=== PATIENT | female | born 1980 | race African-American/Black ===

== ENCOUNTER 2018-06-21 06:52 | Day surgery (SDC) | payer OTHER ==
[2018-06-20 07:58] VITALS: BMI 36.6
[2018-06-21] MEDS ORDERED: fentaNYL CITRATE 250 MCG/5 ML VIAL ONE (07:22)
[2018-06-21] MEDS ORDERED: PROPOFOL 20 ML ONE ×2 (07:22→07:23)
[2018-06-21] MEDS ORDERED: SUCCINYLCHOLINE CHLORIDE 200 MG/10 ML VIAL ONE (07:23)
[2018-06-21] MEDS ORDERED: ROCURONIUM BROMIDE 50 MG/5 ML VIAL ONE ×2 (07:23→09:02)
[2018-06-21] MEDS ORDERED: MIDAZOLAM HCL 2 MG/2 ML SINGLE DOSE VIAL ONE (07:23)
[2018-06-21] MEDS ORDERED: COCAINE HCL 4% TOPICAL SOLUTION 4 ML BOTTLE TP ONE ×2 (07:29→08:20)
[2018-06-21] MEDS ORDERED: BACITRACIN 15 GM TUBE TOPICAL OINTMENT ONE (07:34)
[2018-06-21] MEDS ORDERED: LIDOCAINE 1%/EPI 1:100000 (20 ML MULTI DOSE VIAL) ONE (07:34)
--- NOTE | 2018-06-21 08:00 | HP ---
Admitting History and Physical - Admission Chief Complaint: Nasal congestion and sinus pressure History of Present Illness: Chronic sx, refractory to medication, and allergy rx. History Source: Patient, Medical Record Limitations to Obtaining History: No Limitations - Past Medical History Pulmonary: Yes: Asthma ...LMP: 06/07/18 Musculoskeletal: Yes: Other (carpal tunnel) - Smoking History Smoking history: Never smoked - Alcohol/Substance Use Hx Alcohol Use: No Home Medications - Allergies Allergies/Adverse Reactions: Allergies Allergy/AdvReac Type Severity Reaction Status Date / Time No Known Allergies Allergy Verified 06/21/18 07:30 - Home Medications Home Medications: Ambulatory Orders NK [No Known Home Medication] 06/20/18 Physical Examination Vital Signs: Vital Signs Temperature 98.1 F 06/21/18 07:29 Pulse Rate 60 06/21/18 07:29 Respiratory Rate 20 06/21/18 07:29 Blood Pressure 129/73 06/21/18 07:29 O2 Sat by Pulse Oximetry (%) 98 06/21/18 07:26 Constitutional: Yes: Well Nourished, No Distress Eyes: Yes: WNL, Conjunctiva Clear, EOM Intact HENT: Yes: Other (turbinate hypertrophy) Cardiovascular: Yes: WNL Respiratory: Yes: WNL Gastrointestinal: Yes: WNL Musculoskeletal: Yes: WNL Extremities: Yes: WNL Problem List - Problems (1) Sinusitis chronic, ethmoidal Assessment/Plan: For surgery of sinuses. Risks and benefits dicussed, all questions answered. Code(s): J32.2 - CHRONIC ETHMOIDAL SINUSITIS Assessment/Plan For sinus surgery
[2018-06-21] MEDS ORDERED: ceFAZolin SODIUM 1 GM VIAL IVPB ONE (08:18)
[2018-06-21] MEDS ORDERED: LIDOCAINE 1%/EPI 1:100000 (50 ML MULTI DOSE VIAL) NR ONE (08:20)
[2018-06-21] MEDS ORDERED: NEOSTIGMINE METHYLSULFATE 0.5 MG/ML - 10 ML MDV ONE (08:32)
[2018-06-21] MEDS ORDERED: DEXAMETHASONE SOD PHOSPHATE 4 MG/1 ML VIAL ONE (08:32)
[2018-06-21] MEDS ORDERED: DEXMEDETOMIDINE HCL 200 MCG/2 ML IVPB ONE (08:44)
[2018-06-21] MEDS ORDERED: BACITRACIN 15 GM TUBE TOPICAL OINTMENT TP ONE (09:04)
[2018-06-21] MEDS ORDERED: TRIAMCINOLONE ACET 40MG/1ML VIAL ONE (09:05)
[2018-06-21] MEDS ORDERED: TRIAMCINOLONE ACET 40MG/1ML VIAL IJ ONE (09:06)
[2018-06-21] MEDS ORDERED: oxyCODONE HCL 5 MG TABLET PO PRN (09:33)
[2018-06-21] MEDS ORDERED: ONDANSETRON 4 MG/2 ML VIAL IVPUSH PRN (09:33)
[2018-06-21] MEDS ORDERED: ACETAMINOPHEN 1000 MG/100 ML VIAL (NON FORMULARY) IVPB ONE (09:35)
[2018-06-21] MEDS ORDERED: LACTATED RINGERS SOLUTION 1,000 ML IV SCH (09:45)
[2018-06-21] MEDS ORDERED: ONDANSETRON 4 MG/2 ML VIAL ONE (10:01)
[2018-06-21] MEDS ORDERED: oxyCODONE HCL 5 MG TABLET PO ONE (10:55)
[2018-06-21] MEDS ORDERED: oxyCODONE HCL 5 MG TABLET ONE (10:56)
[2018-06-21 13:38] VITALS: BP 126/70; PULSE 62; TEMP 98
--- NOTE | 2018-06-22 15:56 | PATH ---
Surgical Pathology Report Patient Name: [facility]. Rec. #: [id number] /Age/Gender: 1980 (Age: 38) / F Account: [id number] Location: [facility] [place] SURGICAL Taken: 06/21/2018 Received: 06/21/2018 Reported: 06/22/2018 Physicians: Ashutosh Gardner M.D. Specimen(s) Received ETHMOID SINUS TISSUES Clinical History Chronic sinusitis, turbinate hypertrophy Final Diagnosis ETHMOID SINUS TISSUES, TOTAL ETHMOIDECTOMY: FRAGMENTS OF RESPIRATORY EPITHELIUM, SCANT RESPIRATORY MUCOSA WITH MILD CHRONIC SINUSITIS, AND RARE BONE. Electronically Signed Ansley Vazquez M.D. Gross Description Received in formalin labeled "ethmoid sinus tissues" are multiple fragments of pink-dickson mucoid tissue measuring 3 x 2 x 0.7 cm in aggregate. Alternative Medicine Practitioner sections are submitted in one cassette. MLSZ/06/21/2018 sansandra/06/21/2018
--- NOTE | 2018-06-30 21:32 | OP ---
DATE OF OPERATION: 06/21/2018 PREOPERATIVE DIAGNOSES: Chronic sinusitis, turbinate hypertrophy, nasal obstruction. POSTOPERATIVE DIAGNOSES: Chronic sinusitis, turbinate hypertrophy, nasal obstruction. PROCEDURE: Bilateral anterior ethmoidectomy, bilateral maxillary antrostomy with balloon, bilateral turbinate outfracture and cautery, and sinus navigation instrument. Preoperatively, the risks and benefits were discussed with her and all questions were answered. The procedure went as follows: The patient was brought to the operating room, placed under anesthesia, and then her nose was decongested with 1% lidocaine with 1:100,000 epinephrine injected into the inferior turbinates, lateral nasal wall, and middle turbinates. Cocaine 4% pledgets were placed in both nostrils. She was prepped and draped and then a Leikrtronic Sinus Navigation was placed on and calibrated. After decongesting her nose, endoscopic examination revealed very large inferior turbinates, minimally decongested by topical and injected decongestants, very narrow middle meatus. The surgery was initially performed by medializing the right middle turbinate. She has very hard, bony middle turbinates. The uncinate was peeled forward with a maxillary seeker and the Medtronic Balloon Navigation device was placed into the maxillary sinus and 2 separate insufflations of 5 seconds apiece were performed on the right maxillary ostia. The space between the lateral wall and the middle turbinate was fairly narrow and the middle turbinate was very firm and did not medialize very much. The Medtronic-guided 4-mm straight microdebrider was used to exenterate the ethmoid bulla posteriorly, not past the grand lamella. The dissection was carried mostly toward the medial wall toward the middle turbinate. A complete dissection laterally was not performed due to the narrow space and the amount of oozing. A cottonoid pledget was placed into the ethmoid cavity. The procedure then was carried out on the left side. Using a [place], the middle turbinate was medialized; also very firm middle turbinate and narrow middle meatus. The uncinate was peeled forward using the maxillary seeker and the Medtronic-guided maxillary balloon was placed into the maxillary antrum and 2 separate insufflations were performed using the straight 4-mm guided Medtronic Microdebrider. An anterior ethmoidectomy was performed not posterior to the grand lamella, medial toward the middle turbinate, and some dissection laterally was performed, but not all the way to the orbital wall. A cottonoid was then placed into the anterior ethmoid and the inferior turbinate on the left was outfractured with a long nasal speculum. The inferior turbinate, also, was very hard and bony and moved somewhat, but probably not more than 2 to 3 mm. This was true also of the right inferior turbinate. There is quite edematous mucosa, which was bipolar cauterized with the bipolar in about 5 different locations on the left and then the right inferior turbinate. NasoPore packing with bacitracin was placed in both anterior ethmoid cavities and Kenalog 40 was instilled into each NasoPore packing, about 0.5 mL each. The patient was then extubated and awakened in the operating room and went to the recovery room in stable condition. EDITA MORA M.D. [id number]
== END 2018-06-21 13:10 | disposition home or self-care (01) ==
LOC: JASU-SURG 06:52
PROVIDERS: ATTEND Otolaryngology
PROC: 09BV8ZZ Excision of Left Ethmoid Sinus, Via Natural or Artificial Opening Endoscopic (ICD-10-PCS; 2018-06-21)
PROC: 09BU8ZZ Excision of Right Ethmoid Sinus, Via Natural or Artificial Opening Endoscopic (ICD-10-PCS; 2018-06-21)
PROC: 09SL8ZZ Reposition Nasal Turbinate, Via Natural or Artificial Opening Endoscopic (ICD-10-PCS; 2018-06-21)
PROC: 095L8ZZ Destruction of Nasal Turbinate, Via Natural or Artificial Opening Endoscopic (ICD-10-PCS; 2018-06-21)
PROC: 8E09XBZ Computer Assisted Procedure of Head and Neck Region (ICD-10-PCS; principal; 2018-06-21 08:00)
DX: J32.9 Chronic sinusitis, unspecified (principal); J34.3 Hypertrophy of nasal turbinates
CPT/HCPCS: 84703; 88304-TC; 94760; J0131